=== PATIENT | female | born 1940 | race Caucasian/White ===

== ENCOUNTER → 2018-05-12 | Outpatient (CLI) | payer MEDICARE, BC | LOC: MC.RAD 11:14 | DX: Z12.31 Encounter for screening mammogram for malignant neoplasm of breast (principal); N63.21 Unspecified lump in the left breast, upper outer quadrant ==

== ENCOUNTER → 2018-05-18 | Outpatient (CLI) | payer MEDICARE, BC | LOC: MC.RAD 13:49 | DX: N63.21 Unspecified lump in the left breast, upper outer quadrant (principal); N63.22 Unspecified lump in the left breast, upper inner quadrant; N63.23 Unspecified lump in the left breast, lower outer quadrant; N63.20 Unspecified lump in the left breast, unspecified quadrant ==

== ENCOUNTER → 2018-05-23 | Outpatient (CLI) | payer MEDICARE, BC | LOC: MC.RAD 10:00 | DX: N63.20 Unspecified lump in the left breast, unspecified quadrant (principal); Z98.82 Breast implant status ==

== ENCOUNTER → 2018-11-09 | Outpatient (CLI) | payer MEDICARE, BC | LOC: COL.VAS 12:25 | DX: R60.0 Localized edema (principal) ==

== ENCOUNTER → 2019-05-03 | Outpatient (CLI) | payer MEDICARE, BC | LOC: MC.RAD 10:46 | DX: N63.20 Unspecified lump in the left breast, unspecified quadrant (principal); Z98.890 Other specified postprocedural states; Z85.3 Personal history of malignant neoplasm of breast; Z98.82 Breast implant status | CPT/HCPCS: G0279 ==

== ENCOUNTER → 2022-04-29 | Outpatient (CLI) | payer MEDICARE, BC ==
[~2022-04-29] VITALS: Ht 157.5 cm; Wt 65.4 kg
[~2022-04-29] MED LIST: VERAPAMIL180 MG/TAB PO
[2022-04-29 12:25] VITALS: BP 148/73; PULSE 66; TEMP 97.9
[2022-04-29 14:30] VITALS: BP 147/82; PULSE 72
--- NOTE | 2022-04-29 15:29 | NUR ---
Pt continues to have numbness to buttocks and left leg. Right leg is no longer numb and feels good.
--- NOTE | 2022-04-29 15:30 | NUR ---
Pt continues to have slight numbness to buttock and left leg. Pt given muffin to eat. Will continue to monitor.
--- NOTE | 2022-04-29 15:45 | NUR ---
Pts to room. Pt up to walk with assistance. Pt states she is able to walk in holding area and feels she is ready to go home. Pt up and into wheelchair. Pt out to car. Pt up and into car with standby assistance and holding onto pts arm. Pt has copy of discharge instructions gone over previously. Denies any questions at this time.
== END ==
LOC: COL.RAD 11:54
DX: M54.16 Radiculopathy, lumbar region (principal)
CPT/HCPCS: J3301

== ENCOUNTER → 2022-10-21 | Outpatient (CLI) | payer MEDICARE, BC ==
[~2022-10-21] VITALS: Ht 154.9 cm; Wt 67.4 kg
[~2022-10-21] MED LIST changes: +MAXALT MLT5 MG PO; +VERAPAMIL120 MG/TA1 PO
[2022-10-21 12:44] VITALS: BP 137/70; PULSE 71; TEMP 98.2
[2022-10-21 14:00] VITALS: BP 145/88; PULSE 74
== END ==
LOC: COL.RAD 12:34
DX: M54.16 Radiculopathy, lumbar region (principal)

== ENCOUNTER → 2023-06-30 | Outpatient (CLI) | payer MEDICARE, BC ==
[~2023-06-30] VITALS: Ht 154.9 cm; Wt 67.0 kg
[~2023-06-30] MED LIST changes: +ALLEGRA ALLERGY60 MG PO; +IMODIUM 2MG CAPS2 MG PO
[2023-06-30 09:16] VITALS: BP 132/74; PULSE 64; TEMP 97.8
== END ==
LOC: COL.RAD 08:59
DX: M54.16 Radiculopathy, lumbar region (principal)
CPT/HCPCS: J0665; J3301